=== PATIENT | male | born 1990 | race Caucasian/White ===

== ENCOUNTER 2019-10-01 15:29 | Emergency (ER) | payer SELFPAY ==
[2019-10-01 15:51] VITALS: BP 115/94; PULSE 88; RESP 17; TEMP 36.8; O2SAT 97; BMI 31.2
--- NOTE | 2019-10-01 16:01 | XRR_ITS ---
PROCEDURE INFORMATION: Exam: XR Right Wrist Exam date and time: 10/01/2019 4:03 PM Age: 28 years old Clinical indication: Injury or trauma; Fall; Initial encounter; Blunt trauma (contusions or hematomas; Wrist; Right; Patient HX: Pain in the thumb; Additional info: Fall with wrist pain TECHNIQUE: Imaging protocol: XR Right wrist. Views: 3 or more views. COMPARISON: No relevant prior studies available. FINDINGS: Bones/joints: There are lucencies through the visualized ulna are sesamoid of the thumb. This may be congenital in nature ( bipartite sesamoid). Sesamoid fracture cannot be excluded. Soft tissues: There are small ossified densities in the soft tissue adjacent to the 1st metacarpal head the larger of which measures 1.7 mm. There is hematoma in the soft tissues surrounding the 1st digit and lateral aspect of the wrist/distal forearm. Other findings: Her XR/XR wrist RT min 3V* [id number] IMPRESSION: 1. There are lucencies through the visualized ulnar sesamoid of the thumb. This may be congenital in nature ( bipartite sesamoid) , however raises concern for sesamoid fracture as well. Please correlate clinically. 2. There are small ossified densities in the soft tissue adjacent to the 1st metacarpal head. Differential includes chronic calcifications versus tiny avulsion fractures. 3. There is hematoma in the soft tissues surrounding the 1st digit and lateral aspect of the wrist/distal forearm.
--- NOTE | 2019-10-01 16:27 | W.ED.EXTPRO ---
HPI - Extremity Problem General: Chief complaint: Extremity Injury, Upper Stated complaint: r hand injury Time Seen by Provider: 10/01/19 16:07 History of Present Illness: HPI Narrative: Patient fell 2 nights ago and landed on his outstretched right hand. Has pain and swelling to the hand particularly of the area of the thumb. MD Complaint: extremity pain and extremity swelling Onset (ago): day(s) Pain Consistency: constant Location: right and upper extremity Quality: aching, dull and constant Radiation: none Relieving factors: nothing Exacerbating factors: range of motion and palpation Associated symptoms: Reports no associated symptoms Review of Systems General: Reports: 10 or more systems reviewed and unremarkable except in HPI and below PFSH ED PFSH: Social History Smoking and tobacco status: never smoked Physical Exam Extremity: NARRATIVE EXTREMITY EXAM: Moderately severe swelling to the palmaris aspect of the right hand predominantly at the base of the thenar eminence and involving the thumb itself. Course Vital Signs: Vital signs: Vital Signs Temperature 98.3 F 10/01/19 15:51 Pulse Rate 88 10/01/19 15:51 Respiratory Rate 17 10/01/19 15:51 Blood Pressure 115/94 10/01/19 15:51 Pulse Oximetry 97 10/01/19 15:51 MDM - Extremity (Nontraumatic) Imaging Data^: Other Xray: My impression: Fractured sesamoid bone of the right thumb Discharge Plan Discharge Patient Disposition: Home, Self-Care Clinical Impression: Fracture of sesamoid bone of hand Qualifiers: Encounter type: initial encounter Fracture type: closed Laterality: right Qualified Code(s): S62.101A - Fracture of unspecified carpal bone, right wrist, initial encounter for closed fracture Condition: Stable Discharge Orders: Discharge Order (Routine); Ordered 10/01/19 Ordered By: Paul Pastrana Referrals: Mishel Lenz, [facility] [Primary Care Provider] - Cuong Banerjee MD [Physician] - Coding Level of Care Code ED Lime Filter Operator for Nikita Giordano
[2019-10-01 16:36] VITALS: BP 140/87; PULSE 83; RESP 16; O2SAT 97
--- NOTE | 2019-10-03 11:05 | DCPLANNER ---
barn manager had message to schedule a follow up appointment for patient with ortho. barn manager called the ortho clinic, spoke with Pat, gave clinic patients information. barn manager told that patients information would be printed and reviewed. Clinic will call showcase maker and patient with appointment information.
--- NOTE | 2019-10-04 15:54 | DCPLANNER ---
Patient has a follow up appointment scheduled for , October 05, [address] at 3:[address] Banerjee. Clinic will call patient with appointment information.
--- NOTE | 2019-10-17 15:03 | DCPLANNER ---
Patient did not attend appointment scheduled for 10.05.19 with ortho.
== END 2019-10-01 16:36 | disposition home or self-care (01) ==
LOC: ER 10-02 16:16
PROVIDERS: Emergency Provider Family Medicine; Family Provider Nurse Practitioner; PCP Nurse Practitioner
DX: S62.101A Fracture of unspecified carpal bone, right wrist, initial encounter for closed fracture (principal); W19.XXXA Unspecified fall, initial encounter
CPT/HCPCS: 12345; 73110; 99281; 99282

== ENCOUNTER → 2020-12-31 09:02 | Outpatient (BNVA) | payer OTHER, SELFPAY | PROVIDERS: Family Provider Nurse Practitioner; PCP Nurse Practitioner; Visit Provider Nurse Practitioner Family | DX: Z20.822 Contact with and (suspected) exposure to COVID-19 (principal) | CPT/HCPCS: 87635 ==

== ENCOUNTER 2021-04-07 20:19 | Emergency (ER) | payer SELFPAY ==
[2021-04-07 20:27] VITALS: BP 135/90; PULSE 85; RESP 18; TEMP 36.6; O2SAT 96; BMI 28.1
--- NOTE | 2021-04-07 20:35 | ED_ITS ---
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 Associated symptoms: Denies fever(s), headache(s), nausea, neck pain or vomiting Review of Systems Const: Denies: fever(s), chills, body aches or change in appetite Eyes: Reports: eye discomfort and eye redness ENMT: Denies: throat pain or dental pain Card: Denies: chest pain Resp: Denies: dyspnea GI: Denies: abdominal pain, nausea, vomiting or diarrhea : Denies: dysuria Musc: Denies: neck pain or back pain Skin/Breast: Denies: rash Neuro: Denies: headache(s) Psych: Denies: depression Rosalio/Lymph: Denies: easy bruising All/Imm: Denies: urticaria PFSH ED PFSH: Social History Smoking and tobacco status: never smoked Alcohol intake: current Alcohol intake frequency: holidays/special occasions only Physical Exam Const: COMMON NORMALS: no acute distress, patient oriented x3 and healthy appearing HENMT: COMMON NORMALS: normocephalic and atraumatic HEAD & SCALP: normocephalic and atraumatic Eye: COMMON NORMALS: Equal, round and reactive pupils present and EOMs intact bilaterally PUPIL: Yes Equal, round and reactive pupils present OTHER: Erythema to bilateral eyes no abrasions or abrasionwith fluoroschein stain Neck/C-Spine: COMMON NORMALS: full ROM and supple Chest: COMMONS NORMALS: normal inspection of the chest and normal palpation of entire chest wall Resp: COMMON NORMALS: normal respiratory effort, No retractions, No use of accessory muscles and clear to auscultation bilaterally AUSCULTATION: clear to auscultation bilaterally Cardio: COMMON NORMALS: regular rate, regular rhythm and No murmurs present (Cardio) RATE: regular rate RHYTHM: regular rhythm GI: COMMON NORMALS: Normal to inspection, nondistended, normoactive bowel sounds present, Soft to palpation, non-tender and no masses PALPATION: Yes Soft to palpation Extremity: COMMON NORMALS: normal to inspection and full ROM Neuro: COMMON NORMALS: patient oriented x3, moves all extremities and no focal motor deficits Psych: COMMON NORMALS: mental status grossly normal, Normal thought process present and cooperative THOUGHT PROCESS: Normal thought process present Skin: COMMON NORMALS: no rashes or lesions noted and no wounds GENERAL SKIN EXAM: no rashes or lesions noted Course Vital Signs: Vital signs: Vital Signs Temperature 97.9 F 04/07/21 20:27 Pulse Rate 85 04/07/21 20:27 Respiratory Rate 18 04/07/21 20:27 Blood Pressure 135/90 04/07/21 20:27 Pulse Oximetry 96 04/07/21 20:27 MDM - Eye Problem MDM Narrative: Medical decision making narrative: Patient presents here with [place] burn to bilateral eyes patient is well-appearing here will place on neuropathy medicine and is stable for discharge return if worsening. Discharge Plan Discharge Patient Disposition: Home Clinical Impression: Welders' keratitis of both eyes Condition: Stable Prescriptions: No Action No Known Home Medications RF: 0 Discharge Orders: Discharge ED (Routine); Ordered 04/07/21 Ordered By: Christopher Mathews Referrals: Mishel Lenz FNP-C [Nurse Practitioner] - Discharge Diet: Advance as tolerated Discharge Activity: Resume usual activity Patient Instructions: Keratitis (ED) Stand Alone Forms: Work/School Release Coding Level of Care Code ED Recorder Helper [employer]ity Prospecting for Chg Fwd Exam Comprehensive
[2021-04-07] MEDS: HYDROcodone-acetaminophen 5-325 mg Tablet 1 TAB PO (20:38)
[2021-04-07] MEDS: tetracaine 0.5% Op Soln 4 mL Btl 1 DROP EYE-BOTH (20:42)
[2021-04-07] MEDS: fluorescein 1 mg Strip EYE-BOTH (20:46)
== END 2021-04-07 20:54 | disposition home or self-care (01) ==
PROVIDERS: Emergency Provider Emergency Medicine
DX: H16.133 Photokeratitis, bilateral (principal); W89.8XXA Exposure to other man-made visible and ultraviolet light, initial encounter; Y93.89 Activity, other specified
CPT/HCPCS: 99283

== ENCOUNTER 2021-11-07 20:55 | Emergency (ER) | payer OTHER, SELFPAY ==
[2021-11-07 21:00] VITALS: BMI 29.3
[2021-11-07 21:10] VITALS: BP 133/87; PULSE 88; RESP 18; TEMP 37.2; O2SAT 94
--- NOTE | 2021-11-07 21:10 | USR_ITS ---
PROCEDURE INFORMATION: Exam: US Abdomen, Limited; Right Upper Quadrant Exam date and time: 11/07/2021 9:49 PM Age: 30 years old Clinical indication: Abdominal pain; Additional info: Abd pain TECHNIQUE: Imaging protocol: Real time ultrasound of the abdomen with image documentation. Limited exam focused on the right upper quadrant. COMPARISON: US gall bladder [id number] 02/12/2015 8:14 AM FINDINGS: Gallbladder: Normal. No gallstones. There is no gallbladder wall thickening. Biliary ducts: Normal. No stones. No dilation. Pancreas: Visualized pancreas is unremarkable. US/US gall bladder [id number] IMPRESSION: No acute findings.
--- NOTE | 2021-11-07 21:10 | XRR_ITS ---
PROCEDURE INFORMATION: Exam: XR Chest Exam date and time: 11/07/2021 9:16 PM Age: 30 years old Clinical indication: Angina; Additional info: Cp TECHNIQUE: Imaging protocol: Radiologic exam of the chest. Views: 1 view. COMPARISON: CT chest con [id number] 04/02/2019 4:24 PM FINDINGS: Lungs: Unremarkable. No consolidation. Pleural spaces: Unremarkable. No pleural effusion. No pneumothorax. Heart/Mediastinum: Unremarkable. No cardiomegaly. Bones/joints: Unremarkable. XR/XR chest 1V portable [id number] IMPRESSION: No acute findings.
[2021-11-07 21:19] LABS: Basophils % 0.4 %; Eosinophils # 0.2 10^3/uL (0.0-0.8); Eosinophils % 2.3 %; Hematocrit 45.1 % (42.0-52.0); Hemoglobin 15.3 g/dL (11.7-16.6); Lymphocytes # 2.4 10^3/uL (0.8-4.8); Lymphocytes % 33.2 %; Mean Corpuscular HGB Conc 33.9 g/dL (30.0-36.0); Mean Corpuscular Hemoglobin 30.2 pg (28.0-34.0); Monocytes # 0.3 10^3/uL (0.2-0.9); Monocytes % 3.8 %; Neutrophils # 4.37 10^3/uL (1.8-7.7); Neutrophils % 59.9 %; Nucleated Red Blood Cells % 0 %; Platelet Count 320 10^3/cmm (130-400); Red Blood Count 5.07 10^6/uL (4.1-5.3); Red Cell Distribution Width 12.4 % (12.1-15.1); White Blood Count 7.3 10^3/uL (4.0-10.0)
--- NOTE | 2021-11-07 21:23 | ED_ITS ---
HPI - Chest Pain General: Chief Complaint: Chest Pain Stated Complaint: CP Time Seen by Provider: 11/07/21 21:06 Source: patient and EMS Mode of arrival: EMS Limitations: no limitations History of Present Illness: 30-year-old male states that having these chest pains along with epigastric abdominal pain that come on suddenly over the last 2 years. He states that tonight he started having a severe pain again in his upper abdomen going into his chest and a family member called the ambulance. He states that since being picked up by EMS his pain is completely resolved. He has never seen anyone for this in the past. Denies any shortness of breath or vomiting or diarrhea. Associated symptoms: Reports abdominal pain; Deny dyspnea or fever(s) Review of Systems Const: Denies: fever(s), chills, body aches or change in appetite Eyes: Denies: blurry vision or eye discomfort ENMT: Denies: throat pain or dental pain Card: Reports: chest pain Resp: Denies: dyspnea GI: Reports: abdominal pain : Denies: dysuria Musc: Denies: neck pain or back pain Skin/Breast: Denies: rash Neuro: Denies: headache(s) Psych: Denies: depression Rosalio/Lymph: Denies: easy bruising All/Imm: Denies: urticaria PFSH ED PFSH: Medical History (Updated 11/07/21 @ 22:15 by Christopher Mathews MD) No pertinent past medical history Social History Smoking and tobacco status: current every day smoker Alcohol intake: current Alcohol intake frequency: holidays/special occasions only Physical Exam Const: COMMON NORMALS: no acute distress, patient oriented x3 and healthy appearing HENMT: COMMON NORMALS: normocephalic and atraumatic HEAD & SCALP: normocephalic and atraumatic Eye: COMMON NORMALS: Equal, round and reactive pupils present and EOMs intact bilaterally PUPIL: Yes Equal, round and reactive pupils present Neck/C-Spine: COMMON NORMALS: full ROM and supple Chest: COMMONS NORMALS: normal inspection of the chest and normal palpation of entire chest wall Resp: COMMON NORMALS: normal respiratory effort, No retractions, No use of accessory muscles and clear to auscultation bilaterally AUSCULTATION: clear to auscultation bilaterally Cardio: COMMON NORMALS: regular rate, regular rhythm and No murmurs present (Cardio) RATE: regular rate RHYTHM: regular rhythm GI: COMMON NORMALS: Normal to inspection, nondistended, normoactive bowel sounds present, Soft to palpation, non-tender and no masses PALPATION: Yes Soft to palpation Extremity: COMMON NORMALS: normal to inspection and full ROM Neuro: COMMON NORMALS: patient oriented x3, moves all extremities and no focal motor deficits Psych: COMMON NORMALS: mental status grossly normal, Normal thought process present and cooperative THOUGHT PROCESS: Normal thought process present Skin: COMMON NORMALS: no rashes or lesions noted and no wounds GENERAL SKIN EXAM: no rashes or lesions noted Course Vital Signs: Vital signs: Vital Signs Temperature 98.9 F 11/07/21 21:10 Pulse Rate 88 11/07/21 21:10 Respiratory Rate 18 11/07/21 21:10 Blood Pressure 133/87 11/07/21 21:10 Pulse Oximetry 94 11/07/21 21:10 MDM - Chest Pain Medical Decision Making Patient presents here with chest pain that is really upper abdominal pain he is pain-free here is been going on for years his ultrasound of his gallbladder blood work here are all normal EKG and x-ray are normal he could be having esophageal spasms we will get him follow-up with surgery he is to return if worsening he understands agrees to plan. He has no signs of acute coronary syndrome Lab Data : 11/07/21 21:14 11/07/21 21:14 Radiology Impressions Chest X-Ray 11/07/21 21:10 IMPRESSION: No acute findings. Laboratory Results WBC 7.3 10^3/uL (4.0-10.0) 11/07/21 21:14 RBC 5.07 10^6/uL (4.1-5.3) 11/07/21 21:14 Hgb 15.3 g/dL (11.7-16.6) 11/07/21 21:14 Hct 45.1 % (42.0-52.0) 11/07/21 21:14 MCV 89.0 fl (80-94) 11/07/21 21:14 MCH 30.2 pg (28.0-34.0) 11/07/21 21:14 MCHC 33.9 g/dL (30.0-36.0) 11/07/21 21:14 RDW 12.4 % (12.1-15.1) 11/07/21 21:14 Plt Count 320 10^3/cmm (130-400) 11/07/21 21:14 MPV 9.0 fL (7.4-10.4) 11/07/21 21:14 Neut % (Auto) 59.9 % 11/07/21 21:14 Lymph % (Auto) 33.2 % 11/07/21 21:14 [place]ston % (Auto) 3.8 % 11/07/21 21:14 Eos % (Auto) 2.3 % 11/07/21 21:14 Baso % (Auto) 0.4 % 11/07/21 21:14 Neut # (Auto) 4.37 10^3/uL (1.8-7.7) 11/07/21 21:14 Lymph # (Auto) 2.4 10^3/uL (0.8-4.8) 11/07/21 21:14 Thurston # (Auto) 0.3 10^3/uL (0.2-0.9) 11/07/21 21:14 Eos # (Auto) 0.2 10^3/uL (0.0-0.8) 11/07/21 21:14 Baso # (Auto) 0.0 10^3/uL (0.0-0.1) 11/07/21 21:14 Nucleated RBC % (auto) 0 % 11/07/21 21:14 Nucleated RBCs # 0.0 /100WBC 11/07/21 21:14 Sodium 141 mmol/L (136-145) 11/07/21 21:14 Potassium 3.8 mmol/L (3.5-5.1) 11/07/21 21:14 Chloride 104 mmol/L (98-107) 11/07/21 21:14 Carbon Dioxide 22 mmol/L (22-29) 11/07/21 21:14 Anion Gap 18.8 (5-19) 11/07/21 21:14 BUN 7 mg/dL (6-20) 11/07/21 21:14 Creatinine 0.9 mg/dL (0.7-1.2) 11/07/21 21:14 GFR Calculation 99.8 mL/min (90-130) 11/07/21 21:14 Glucose 100 mg/dL (65-115) 11/07/21 21:14 Calculated Osmolality 290 mOsm/kg (285-295) 11/07/21 21:14 Calcium 9.3 mg/dL (8.5-10.5) 11/07/21 21:14 Total Bilirubin 0.5 mg/dL (0.15-1.2) 11/07/21 21:14 AST 19 U/L (0-40) 11/07/21 21:14 ALT 23 U/L (0-41) 11/07/21 21:14 Alkaline Phosphatase 71 IU/L (40-130) 11/07/21 21:14 Total Protein 7.0 g/dL (6.6-8.7) 11/07/21 21:14 Albumin 4.9 g/dL (3.5-5.2) 11/07/21 21:14 Globulin 2.1 g/dL (1.3-4.6) 11/07/21 21:14 Lipase 23 U/L (13-60) 11/07/21 21:14 EKG Data EKG 1: I personally reviewed and interpreted this EKG as follows: EKG interpretation date: 11/07/21 EKG interpretation time: 21:08 Interpretation: nsr hr [address] or t wave abnormalities qrs 106 qtc 401 Discharge Plan Discharge Patient Disposition: Home Clinical Impression: Abdominal pain Chest pain Qualifiers: Chest pain type: unspecified Qualified Code(s): R07.9 - Chest pain, unspecified Condition: Stable Prescriptions: New Protonix 40 mg tablet,delayed release (DR/EC) 40 mg PO DAILY Qty: 60 0RF No Action tramadol 50 mg tablet 50 mg PO Q6H [id number] hydrocodone-acetaminophen 5-325 mg tablet 1 tab PO BID PRN (Reason: pain) 5 Days Qty: 10 0RF Discharge Orders: Discharge ED (Routine); Ordered 11/07/21 Ordered By: Christopher Mathews Referrals: Sky Sneed MD [Physician] - 1-3 days Discharge Diet: Advance as tolerated Discharge Activity: Resume usual activity Patient Instructions: Abdominal Pain (ED) Coding Level of Care Code ED International Trade Teacher for Chg Fwd Exam Comprehensive
[2021-11-07 21:42] LABS: Alanine Aminotransferase 23 U/L (0-41); Albumin Level 4.9 g/dL (3.5-5.2); Alkaline Phosphatase 71 IU/L (40-130); Anion Gap 18.8 (5-19); Aspartate Amino Transferase 19 U/L (0-40); Blood Urea Nitrogen 7 mg/dL (6-20); Calcium 9.3 mg/dL (8.5-10.5); Carbon Dioxide 22 mmol/L (22-29); Chloride 104 mmol/L (98-107); Globulin 2.1 g/dL (1.3-4.6); Glomerular Filtration Rate 99.8 mL/min (90-130); Glucose 100 mg/dL (65-115); Lipase 23 U/L (13-60); Osmolality Calculated 290 mOsm/kg (285-295); Potassium 3.8 mmol/L (3.5-5.1); Sodium 141 mmol/L (136-145); Total Bilirubin 0.5 mg/dL (0.15-1.2)
[2021-11-07 22:21] VITALS: BP 133/87; PULSE 82; RESP 18; O2SAT 94
--- NOTE | 2021-11-09 13:40 | DCPLANNER ---
Addendum entered by Mariposa Espinosa 11/12/21 14:53: animal rides manager was sent the following message from general surgery regarding appointment information: Unable to leave voicemail.. this is 3rd attempt to reach patient, mailing letter. On 11/10/21 @ 15:13 Maria Teresa Shearer Wrote To [employer] Principal Front Off called again this afternoon 3:10 unable to lvm On 11/10/21 @ 08:17 Maria Teresa Shearer Wrote To [employer] Principal Front Off phone number is not accepting messages. Unable to leave message 11/10 Original Note: animal rides manager had message to schedule a follow up appointment for patient with general surgery. animal rides manager sent patients information to the front office staff at general surgery. Patients information will be printed and reviewed. Clinic will call patient with appointment information.
== END 2021-11-07 22:23 | disposition home or self-care (01) ==
PROVIDERS: Emergency Provider Emergency Medicine
DX: R10.9 Unspecified abdominal pain (principal); R07.9 Chest pain, unspecified; F17.210 Nicotine dependence, cigarettes, uncomplicated
CPT/HCPCS: 71045; 76705; 80053; 83690; 85025; 99284

== ENCOUNTER 2023-11-29 08:54 | Outpatient (CLI) | payer OTHER, SELFPAY ==
--- NOTE | 2023-11-29 08:45 | MR_ITS ---
WS: [id number] MRI LEFT ANKLE WITHOUT CONTRAST. COMPARISON: Radiograph 11/12/2023 Multiplanar, multisequence imaging is performed without contrast. Very subtle increased edema within the anterior talus. No acute fractures. Talar dome is intact. Very abnormal appearance of the deltoid ligament. There is marked thickening and increased T2 signal throughout the entire deltoid ligament. Striations are predominantly still present. There is no fluid -filled gap. This is consistent with a sprain. Less likely complete or partial tear with no fluid-colleen led ligament gap. Anterior and posterior talofibular ligaments appear intact. There is a small amount of fluid adjacent to each ligament but no fluid gap or complete tear. There is a small posterior rec ess joint effusion. The Achilles tendon is normal. Normal plantar fascia. Peroneus brevis and longus tendons and tendon s tia are negative. Posterior tibialis, flexor digitorum longus and the flexor hallucis longus tendon s are appropriate. The deltoid sprain and edema is abutting the posterior tibialis tendon but not dis placing it significantly. No tendon tear. MR/MR ankle LT wo con* [id number] IMPRESSION: 1. Markedly abnormal signal throughout the deltoid ligament. Increased T2 sign al and thickening of the deltoid ligament but no fluid gap. This is most consis tent with a grade 1 sprain. 2. Anterior and posterior talofibular ligaments appear intact. 3. Small amount of marrow edema in the anterior talus. No fracture.
== END 2023-11-29 08:55 | disposition home or self-care (01) ==
LOC: RAD 08:55
PROVIDERS: PCP Nurse Practitioner Family; Visit Provider Nurse Practitioner Family
DX: S93.422A Sprain of deltoid ligament of left ankle, initial encounter (principal)
CPT/HCPCS: 73721